=== PATIENT | female | born 1960 | race Caucasian/White ===

== ENCOUNTER 2023-10-11 19:40 | Emergency (ER) | payer MEDICARE ==
[~2023-10-11] VITALS: Ht 167.6 cm; Wt 61.2 kg
[~2023-10-11 19:40] MED LIST: Acetaminophen325 M1 PO; CEPH500 PO; DULCOLAX400 MG/5 M PO; IBUP200 PO; LOPE2C PO; RISP1 PO; TRAZ50 PO
[2023-10-11 21:37] LABS: BASOPHILS ABSOLUTE AUTO 0.06 K/mm3 (0.00-0.23); BASOPHILS PERCENT AUTO 1 % (0-2); EOSINOPHILS ABSOLUTE AUTO 0.07 K/mm3 (0.00-0.68); EOSINOPHILS PERCENT AUTO 1 % (0-6); Hematocrit 39.1 % (33.0-51.0); Hemoglobin 12.4 g/dL (11.5-16.0); IMMATURE GRAN ABSOLUTE AUTO 0.03 K/mm3 (0.00-0.10); IMMATURE GRAN PERCENT AUTO 0 % (0-1); LYMPHOCYTES ABSOLUTE AUTO 0.77 K/mm3 (0.84-5.20); LYMPHOCYTES PERCENT AUTO 8 % (21-46); MONOCYTES ABSOLUTE AUTO 0.81 K/mm3 (0.16-1.47); MONOCYTES PERCENT AUTO 8 % (4-13); Mean Corpuscular HGB 28.9 pg (26.0-34.0); Mean Corpuscular HGB Conc 31.7 g/dL (31.5-36.5); Mean Corpuscular Volume 91 fL (80-100); Mean Platelet Volume 11.6 fL (9.1-12.4); NEUTROPHILS ABSOLUTE AUTO 8.59 K/mm3 (1.96-9.15); NEUTROPHILS PERCENT AUTO 83 % (41-73); Platelet Count 224 K/mm3 (150-400); RDW Coefficient Variation 13.4 % (11.7-14.2); RDW Standard Deviation 44.9 fL (35.1-46.3); Red Blood Cell Count 4.29 M/mm3 (3.80-5.20); White Blood Cell Count 10.33 K/mm3 (4.00-11.30)
[2023-10-11 21:45] LABS: Source, Urine Straight Cath
[2023-10-11 21:50] LABS: Bilirubin, Urine Neg (Neg); Blood, Urine 3+ (Neg); Glucose Qualitative, Urine Neg (Neg); Ketones, Urine Neg (Neg); Leukocyte Esterase, Urine 1+ (Neg); Nitrite, Urine Pos (Neg); Protein, Urine 1+ (Neg); Specific Gravity, Urine 1.025 (1.003-1.022); Urobilinogen, Urine NORM (Normal)
[2023-10-11 21:52] LABS: Appearance, Urine Hazy (Clear); Color, Urine Yellow (P-Yellow)
[2023-10-11 21:56] LABS: Red Blood Cells, Urine 0-2 /hpf (0-2); Squamous Epithelial Cells Not Seen /hpf (Few); White Blood Cells, Urine 25-50 /hpf (0-5)
[2023-10-11 21:57] LABS: Bacteria Many /hpf
[2023-10-11 22:03] LABS: Albumin, Blood 3.4 g/dL (3.4-5.0); Albumin/Globulin Ratio 1.1 (0.8-1.8); Bilirubin, Total 0.5 mg/dL (0.1-1.0); Bun/Creatinine Ratio 28.3 (12.0-20.0); Calcium, Blood 8.5 mg/dL (8.5-10.1); Creatinine, Blood 0.92 mg/dL (0.40-1.00); Potassium, Blood 3.5 mmol/L (3.5-5.5); Total Protein, Blood 6.4 g/dL (6.4-8.2)
[2023-10-11] MEDS ORDERED: CEPH500 PO (22:17)
[2023-10-11] MEDS ORDERED: ACET500 PO (22:17)
[2023-10-11 23:48] VITALS: BP 154/84
== END 2023-10-12 00:25 | disposition home or self-care (01) ==
LOC: ER 19:40
PROVIDERS: Emergency Medicine
DX: S06.6XAA Traumatic subarachnoid hemorrhage with loss of consciousness status unknown, initial encounter (principal); S00.11XA Contusion of right eyelid and periocular area, initial encounter; N30.01 Acute cystitis with hematuria; G30.9 Alzheimer's disease, unspecified; F02.80 Dementia in other diseases classified elsewhere, unspecified severity, without behavioral disturbance, psychotic disturbance, mood disturbance, and anxiety; N18.9 Chronic kidney disease, unspecified; Z87.440 Personal history of urinary (tract) infections; R29.6 Repeated falls; Z79.899 Other long term (current) drug therapy; W18.30XA Fall on same level, unspecified, initial encounter
CPT/HCPCS: 70450; 80053; 81001; 85025; 87077; 87086; 87186; 96365; 96375; 99284-25; J0696; J1885

== ENCOUNTER 2023-10-16 07:36 | Emergency (ER) | payer MEDICARE ==
[~2023-10-16] VITALS: Ht 167.6 cm; Wt 68.0 kg
[~2023-10-16 07:36] MED LIST changes: +ACET500 PO
[2023-10-16] MEDS ORDERED: ALUMINUM H320 MG/5 M PO (07:55)
[2023-10-16 10:40] VITALS: BP 144/93
== END 2023-10-16 10:43 | disposition home or self-care (01) ==
LOC: ER 07:36
DX: S09.90XA Unspecified injury of head, initial encounter (principal); W18.30XA Fall on same level, unspecified, initial encounter; Z88.1 Allergy status to other antibiotic agents; Z79.899 Other long term (current) drug therapy; N18.9 Chronic kidney disease, unspecified
CPT/HCPCS: 70450; 99284-25

== ENCOUNTER 2023-10-22 15:09 | Emergency (ER) | payer MEDICARE ==
[~2023-10-22] VITALS: Ht 162.6 cm; Wt 52.2 kg
[~2023-10-22 15:09] MED LIST changes: +ALUMINUM H320 MG/5 M PO
[2023-10-22 16:35] LABS: BASOPHILS ABSOLUTE AUTO 0.04 K/mm3 (0.00-0.23); BASOPHILS PERCENT AUTO 1 % (0-2); EOSINOPHILS ABSOLUTE AUTO 0.02 K/mm3 (0.00-0.68); EOSINOPHILS PERCENT AUTO 0 % (0-6); Hematocrit 40.3 % (33.0-51.0); Hemoglobin 13.4 g/dL (11.5-16.0); IMMATURE GRAN ABSOLUTE AUTO 0.02 K/mm3 (0.00-0.10); IMMATURE GRAN PERCENT AUTO 0 % (0-1); LYMPHOCYTES ABSOLUTE AUTO 0.68 K/mm3 (0.84-5.20); LYMPHOCYTES PERCENT AUTO 8 % (21-46); MONOCYTES ABSOLUTE AUTO 0.64 K/mm3 (0.16-1.47); MONOCYTES PERCENT AUTO 7 % (4-13); Mean Corpuscular HGB 29.5 pg (26.0-34.0); Mean Corpuscular HGB Conc 33.3 g/dL (31.5-36.5); Mean Corpuscular Volume 89 fL (80-100); Mean Platelet Volume 12.4 fL (9.1-12.4); NEUTROPHILS ABSOLUTE AUTO 7.42 K/mm3 (1.96-9.15); NEUTROPHILS PERCENT AUTO 84 % (41-73); Platelet Count 228 K/mm3 (150-400); RDW Coefficient Variation 13.3 % (11.7-14.2); RDW Standard Deviation 43.7 fL (35.1-46.3); Red Blood Cell Count 4.54 M/mm3 (3.80-5.20); White Blood Cell Count 8.82 K/mm3 (4.00-11.30)
[2023-10-22 16:57] LABS: Albumin, Blood 3.9 g/dL (3.4-5.0); Albumin/Globulin Ratio 1.2 (0.8-1.8); Bun/Creatinine Ratio 35.2 (12.0-20.0); Creatinine, Blood 0.99 mg/dL (0.40-1.00); Globulin, Blood 3.2 g/dL (2.2-4.0); Potassium, Blood 3.7 mmol/L (3.5-5.5); Thyroid Stimulating Hormone 1.1 uIU/mL (0.360-4.800); Total Protein, Blood 7.1 g/dL (6.4-8.2)
[2023-10-22 18:04] LABS: Source, Urine Straight Cath
[2023-10-22 18:11] LABS: Appearance, Urine Clear (Clear); Bilirubin, Urine Neg (Neg); Blood, Urine 3+ (Neg); Color, Urine Yellow (P-Yellow); Glucose Qualitative, Urine Neg (Neg); Ketones, Urine Neg (Neg); Leukocyte Esterase, Urine Neg (Neg); Nitrite, Urine Neg (Neg); Protein, Urine Neg (Neg); Specific Gravity, Urine 1.025 (1.003-1.022); Urobilinogen, Urine NORM (Normal)
[2023-10-22 18:29] LABS: Bacteria Many /hpf; Squamous Epithelial Cells Few /hpf (Few)
[2023-10-22 19:08] VITALS: BP 164/93
[2023-10-22] MEDS ORDERED: NITR100CA PO (19:11)
== END 2023-10-22 20:06 | disposition home or self-care (01) ==
LOC: ER 15:09
PROVIDERS: Emergency Medicine
DX: S09.90XA Unspecified injury of head, initial encounter (principal); N18.9 Chronic kidney disease, unspecified; F03.90 Unspecified dementia, unspecified severity, without behavioral disturbance, psychotic disturbance, mood disturbance, and anxiety; W18.30XA Fall on same level, unspecified, initial encounter; Z88.1 Allergy status to other antibiotic agents; Z79.899 Other long term (current) drug therapy
CPT/HCPCS: 70450; 70486; 80053; 81001; 84443; 85025; 93005; 93010; 96374; 99284-25; J0696; P9612

== ENCOUNTER 2023-11-07 17:18 | Emergency (ER) | payer MEDICARE ==
[~2023-11-07] VITALS: Ht 162.6 cm; Wt 59.0 kg
[~2023-11-07 17:18] MED LIST changes: +NITR100CA PO
[2023-11-07 20:14] VITALS: BP 143/113
== END 2023-11-07 21:56 | disposition home or self-care (01) ==
LOC: ER 17:18
DX: S09.90XA Unspecified injury of head, initial encounter (principal); H11.31 Conjunctival hemorrhage, right eye; S40.021A Contusion of right upper arm, initial encounter; N18.9 Chronic kidney disease, unspecified; G20.A1 Parkinson's disease without dyskinesia, without mention of fluctuations; F02.80 Dementia in other diseases classified elsewhere, unspecified severity, without behavioral disturbance, psychotic disturbance, mood disturbance, and anxiety; R29.6 Repeated falls; Z99.89 Dependence on other enabling machines and devices; Z79.899 Other long term (current) drug therapy; Z88.1 Allergy status to other antibiotic agents; W18.39XA Other fall on same level, initial encounter; Y92.129 Unspecified place in nursing home as the place of occurrence of the external cause; Y93.01 Activity, walking, marching and hiking
CPT/HCPCS: 70450; 72125; 99284-25

== ENCOUNTER 2023-11-23 20:16 | Observation (INO) | payer MEDICARE ==
[~2023-11-23] VITALS: Ht 154.9 cm; Wt 50.6 kg
[2023-11-23] MEDS ORDERED: AMOX-CLAV 500-1 EAC5 (20:32)
[2023-11-23] MEDS ORDERED: HALO.5 (20:32)
[2023-11-23 20:48] LABS: BASOPHILS ABSOLUTE AUTO 0.03 K/mm3 (0.00-0.23); BASOPHILS PERCENT AUTO 0 % (0-2); EOSINOPHILS ABSOLUTE AUTO 0.03 K/mm3 (0.00-0.68); EOSINOPHILS PERCENT AUTO 0 % (0-6); Hematocrit 46.1 % (33.0-51.0); Hemoglobin 14.5 g/dL (11.5-16.0); IMMATURE GRAN ABSOLUTE AUTO 0.04 K/mm3 (0.00-0.10); IMMATURE GRAN PERCENT AUTO 0 % (0-1); LYMPHOCYTES ABSOLUTE AUTO 0.69 K/mm3 (0.84-5.20); LYMPHOCYTES PERCENT AUTO 7 % (21-46); MONOCYTES ABSOLUTE AUTO 0.84 K/mm3 (0.16-1.47); MONOCYTES PERCENT AUTO 9 % (4-13); Mean Corpuscular HGB 28.5 pg (26.0-34.0); Mean Corpuscular HGB Conc 31.5 g/dL (31.5-36.5); Mean Corpuscular Volume 91 fL (80-100); Mean Platelet Volume 12.4 fL (9.1-12.4); NEUTROPHILS PERCENT AUTO 83 % (41-73); Platelet Count 230 K/mm3 (150-400); RDW Coefficient Variation 13.4 % (11.7-14.2); RDW Standard Deviation 44.8 fL (35.1-46.3); Red Blood Cell Count 5.08 M/mm3 (3.80-5.20); White Blood Cell Count 9.33 K/mm3 (4.00-11.30)
[2023-11-23 20:56] LABS: Base Excess Venous 1.1 mmol/L; Bicarbonate Venous 24.7 mmol/L (24.0-30.0); PCO2 Venous 41.6 mmHg (38-42)
[2023-11-23 21:09] LABS: Albumin, Blood 3.1 g/dL (3.4-5.0); Albumin/Globulin Ratio 0.7 (0.8-1.8); Bilirubin, Total 0.8 mg/dL (0.1-1.0); Bun/Creatinine Ratio 36.5 (12.0-20.0); Calcium, Blood 9.1 mg/dL (8.5-10.1); Creatinine, Blood 1.04 mg/dL (0.40-1.00); Globulin, Blood 4.4 g/dL (2.2-4.0); Potassium, Blood 3.9 mmol/L (3.5-5.5); Total Protein, Blood 7.5 g/dL (6.4-8.2)
[2023-11-24 00:25] VITALS: BP 114/81
--- NOTE | 2023-11-24 00:43 | NUR ---
ADMISSION NOTE PATIENT ARRIVED TO 355 VIA STRETCHER. PATIENT'S EYES OPEN SPONTANEOUSLY BUT THIS RN UNABLE TO ASSESS ORIENTATION THE PATIENT ONLY RESPONDS WITH "UH HUH" WHEN SPOKEN TO AND IS UNABLE TO FOLLOW COMMANDS. PATIENT MOVES EXTREMITES EASILY AND DOES NOT APPEAR TO BE IN PAIN. BREATHING IS SHALLOW AND UNLABORED, TACHYPNIC AT 24, REQUIRING 6 LITERS O2 VIA NC. TO MAINTAIN SPO2 >90%. VITAL SIGNS OTHERWISE STABLE. WILL CONTINUE TO MONITOR. CALL LIGHT WITHIN REACH. BED ALARM ON.
[2023-11-24 04:18] VITALS: BP 121/71
[2023-11-24 04:35] LABS: Bun/Creatinine Ratio 43.5 (12.0-20.0); Calcium, Blood 8.2 mg/dL (8.5-10.1); Creatinine, Blood 0.74 mg/dL (0.40-1.00); Potassium, Blood 3.8 mmol/L (3.5-5.5)
--- NOTE | 2023-11-24 06:00 | NUR ---
SHIFT SUMMARY PATIENT SLEEPING COMFORTABLY. CONTINUES ON 6 LITERS O2 VIA NC. NO CHANGES SINCE ADMIT. WILL CONTINUE TO MONITOR. CALL LIGHT WITHIN REACH.
[2023-11-24 07:19] VITALS: BP 125/76
--- NOTE | 2023-11-24 15:40 | NUR ---
Met with pt and family this morning at bedside to review hospice philosophy. The family and patient are all in agreement this is the right decision for their family, as pt's mobility and communication have been rapidly declining. Pt was placed on comfort care this morning, and the plan at this time is for her to return to [facility] with hospice tomorrow morning. [facility] is the preferred hospice for the family, according to them. Daughter Rani is POA, as pt's reportedly has some memory issues of his own and currently lives in a cottage on the same property. CM is now handling arranging transportation. Symptoms well controlled at this time.
--- NOTE | 2023-11-24 17:37 | NUR ---
DAY SHIFT SUMMARY PT FAMILY AT BEDSIDE T/O THE DAY. PT TRANSFERED TO AFTER DISCUSSION WITH DR MINAYA AND PALLIATIVE CARE NURSE. PT HAS BEEN IN AND OUT OF ALERTNESS T/O THE DAY. PT TOOK IN SMALL AMOUNTS OF FOOD WITH FAMILY ASSISTANCE. PT TO DISCHARGE TOMORROW AT 10AM BACK TO [place] WITH ADMIT TO [facility]. FAMILY REQUESTED IF ANY CHANGES OR DECLINE OCCUR OVERNIGHT TO CONTACT THEM BY PHONE. PT IS REQUIRING 6L 02 TO MAINTAIN OXYGEN SATURATION. FAMILY HAS REQUESTED PT CONT TO GET OXYGEN T/O THE NIGHT. PT IS MOSTLY NON VERBAL WITH SPORADIC ONE WORD RESPONSES. PT GIVEN ROXANOL FOR PAIN COMTROL AND COMFORT. PT WILL GRIMACE AND TENSE WHEN IN PAIN. PT INCONTINENT AND ON BEDREST.
--- NOTE | 2023-11-25 06:05 | NUR ---
SHIFT SUMMARY PT IS LETHARGIC, AND DOES NOT COMMUNICATE, BUT DOES AWAKE WITH CARES. REMAINS ON 6L NC PER FAMILY'S REQUEST. 10 MG SL ROXANOL GIVEN PER EMAR TO KEEP PT COMFORTABLE. DRINKS THIN LIQUIDS WITH STRAW WITH NO PROBLEMS. INCONTINENT OF DARK YELLOW, ODOROUS URINE. BRIEF IN PLACE. NO BM THIS SHIFT. REPOSITIONED Q2 TOLERATED. BED IN LOWEST POSITION, CALL LIGHT WITHIN REACH. BED ALARM SET FOR PT'S SAFETY.
[2023-11-25] MEDS ORDERED: Ativan1 MG PO (10:46)
[2023-11-25] MEDS ORDERED: MORP20L SL (10:47)
--- NOTE | 2023-11-25 12:15 | NUR ---
PT TRANSPORTED TO FACILITY ON HOSPICE. [facility] WITH TRANSPORT AND COPY IN CHART PRE MEDICATED FOR PAIN DURING TRANSPORT. PT AROUSABLE PT QUICKLY CLOSED EYES. SIPS OF WATER GIVEN.
== END 2023-11-25 11:05 | disposition hospice, home (50) ==
LOC: ER 20:16 → MEDS 23:06
PROVIDERS: Emergency Medicine; ADMIT Internal Medicine
DX: J96.01 Acute respiratory failure with hypoxia (principal); G93.40 Encephalopathy, unspecified; G30.9 Alzheimer's disease, unspecified; F02.80 Dementia in other diseases classified elsewhere, unspecified severity, without behavioral disturbance, psychotic disturbance, mood disturbance, and anxiety; Z51.5 Encounter for palliative care; Z88.8 Allergy status to other drugs, medicaments and biological substances; Z79.899 Other long term (current) drug therapy
CPT/HCPCS: 36415; 70450; 71045; 80048; 80053; 82803; 82947; 83605; 83880; 84484; 85025; 93005; 93010; 96361; 96374; 99285-25; A9270; G0378; J0295; J7030; J7070